=== PATIENT | male | born 1960 | race Caucasian/White ===

== ENCOUNTER 2018-05-13 19:06 | Inpatient (IN) | payer BC ==
[2018-05-13] MEDS ORDERED: DILTIAZEM HCL INJ 25 MG/5 ML VIAL IV ONE (19:36)
[2018-05-13] MEDS ORDERED: RINGERS SOLUTION,LACTATED 1,000 ML IV ONE (19:37)
[2018-05-13 19:42] LABS: ABSOLUTE EOSINOPHILS # (AUTO) 0.1 10^3/uL (0.0-0.6); ABSOLUTE LYMPHOCYTES (AUTO) 1.8 10^3/uL (0.5-4.7); ABSOLUTE MONOCYTES (AUTO) 1.1 10^3/uL (0.1-1.4); ABSOLUTE NEUT (AUTO) 9.5 10^3/uL (1.7-8.2); BASOPHILS % (AUTO) 0.3 % (0-2); EOSINOPHILS % (AUTO) 0.5 % (0-6); HEMATOCRIT 38.1 % (37.9-51.0); HEMOGLOBIN 13.1 g/dL (13.5-17.0); LYMPHOCYTES % (AUTO) 14.1 % (13-45); MEAN CORPUSCULAR HGB CONC 34.3 g/dL (32.0-36.0); MEAN CORPUSCULAR VOLUME 88 fl (80-97); MONOCYTES % (AUTO) 8.9 % (3-13); PLATELET COUNT 185 10^3/uL (150-450); RED BLOOD COUNT 4.35 10^6/uL (4.35-5.55); RED CELL DISTRIBUTION WIDTH 13.5 % (11.5-14.0); SEGMENTED NEUTROPHILS % (AUTO) 76.2 % (42-78); TOTAL CELLS COUNTED % (AUTO) 100 %; WHITE BLOOD COUNT 12.5 10^3/uL (4.0-10.5)
[2018-05-13 19:50] LABS: ANION GAP 6 (5-19); BLOOD UREA NITROGEN 14 mg/dL (7-20); CALCIUM 8.8 mg/dL (8.4-10.2); CARBON DIOXIDE 31 mmol/L (22-30); CHLORIDE 102 mmol/L (98-107); GLUCOSE 123 mg/dL (75-110); POTASSIUM 3.7 mmol/L (3.6-5.0); SODIUM 138.5 mmol/L (137-145)
--- NOTE | 2018-05-13 19:53 | ER Document Report ---
ED General - General Stated Complaint: WEAKNESS Time Seen by Provider: 05/13/18 19:30 Notes: Patient is a 57-year-old male with a past medical history of morbid obesity, hypertension, presents with 2-3 days of generalized weakness, palpitations and shortness of breath. Patient states symptoms started gradually and have been progressing since that time. 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 He has not seen his primary care physician regarding today's concerns. Nothing is been noted to improve or worsen his symptoms. He denies nausea, vomiting, arm or jaw pain. TRAVEL OUTSIDE OF THE [place] IN LAST 30 DAYS: No - Related Data Allergies/Adverse Reactions: No Known Allergies Allergy (Unverified 11/12/11 13:14) Past Medical History - General Information source: Patient - Social History Smoking Status: Never Smoker Frequency of alcohol use: None Drug Abuse: None Lives with: Spouse/Significant other Family History: Reviewed & Not Pertinent - Past Medical History Cardiac Medical History: Reports: Hx Hypercholesterolemia, Hx Hypertension Pulmonary Medical History: Denies: Hx Tuberculosis Neurological Medical History: Denies: Hx Seizures Past Surgical History: Denies: Hx Pacemaker - Immunizations Hx Diphtheria, Pertussis, Tetanus Vaccination: No Review of Systems - Review of Systems Notes: Constitutional: Negative for fever. HENT: Negative for sore throat. Eyes: Negative for visual changes. Cardiovascular: Positive for chest discomfort, palpitations Respiratory: Positive for shortness of breath. Gastrointestinal: Negative for abdominal pain, vomiting or diarrhea. Genitourinary: Negative for dysuria. Musculoskeletal: Negative for back pain. Skin: Negative for rash. Neurological: Negative for headaches, weakness or numbness. 10 point ROS negative except as marked above and in HPI. Physical Exam - Vital signs Vitals: Resp Pulse Ox 25 H 90 L 05/13/18 19:21 05/13/18 19:21 Interpretation: Tachycardic, Hypoxic, Tachypneic Notes: PHYSICAL EXAMINATION: GENERAL: Appears mildly unwell but in no acute distress HEAD: Atraumatic, normocephalic. EYES: Pupils equal round and reactive to light, extraocular movements intact, sclera anicteric, conjunctiva are normal. ENT: nares patent, oropharynx clear without exudates. Moderately dry mucous membranes. NECK: Normal range of motion, supple without lymphadenopathy LUNGS: Breath sounds clear to auscultation bilaterally and equal. No wheezes rales or rhonchi. HEART: Irregular regular tachycardia without murmurs ABDOMEN: Soft, nontender, normoactive bowel sounds. No guarding, no rebound. No masses appreciated. EXTREMITIES: Normal range of motion, no pitting or edema. No cyanosis. NEUROLOGICAL: No focal neurological deficits. Moves all extremities spontaneously and on command. PSYCH: Normal mood, normal affect. SKIN: Warm, Dry, normal turgor, no rashes or lesions noted. Course - Re-evaluation Re-evalutation: 05/13/18 19:51 Patient presents in A. fib with rapid ventricular response with associated borderline hypoxemia. Apparently was 90% on room air for EMS. Does not have a history of hypoxemia or A. fib at baseline. Patient's initial rates are ranging anywhere from the upper 130s to mid 160s. No hypotension. Patient does appear moderately short of breath, mildly tachypneic on initial assessment. Trace edema in the bilateral lower extremity's. Patient will receive a diltiazem bolus of 15 mg followed by infusion. He has a ready received 1 L normal saline bolus without any improvement of his tachycardia. Will also undergo standard la boratory assessment as well as chest x-ray. Certainly there would be concern for the possibility of development of failure as it sound like patient has had symptoms for several days and has not sought care. Patient is in guarded condition, will require frequent and regular reassessments. 05/13/18 21:04 Patient has received his diltiazem bolus, remains quite tachycardic. Infusion has been initiated. Labs are notable for mild BNP elevation likely secondary to uncontrolled A. fib for an extended period time. Chest x-ray without evidence of pulmonary edema. Continue to reassess. 05/13/18 22:05 Patient's heart rate is gradually improving, currently into the 130s. Remains oxygen dependent at this point. Will continue to up titrate diltiazem. Will discuss with the hospitalist. 05/13/18 22:12 Dr. Warren has accepted the patient for admission. - Vital Signs Vital signs: Temp Pulse Resp BP Pulse Ox 97.9 F 115 H 22 H 115/60 90 L 05/14/18 00:29 05/14/18 02:00 05/14/18 00:29 05/14/18 02:00 05/14/18 00:29 - Laboratory Result Diagrams: 05/13/18 19:05 05/13/18 19:05 Laboratory results interpreted by me: 05/13/18 05/13/18 05/13/18 19:05 19:05 19:05 WBC 12.5 H Hgb 13.1 L Absolute Neutrophils 9.5 H Carbon Dioxide 31 H Glucose 123 H NT-Pro-B Natriuret Pep 1960 H - Diagnostic Test Radiology reviewed: Image reviewed, Reports reviewed Radiology results interpreted by me: 05/13/18 22:13 Chest x-ray: No acute infiltrate or pneumothorax - EKG Interpretation by Me Additional EKG results interpreted by me: 05/13/18 19:53 Atrial fibrillation with rapid ventricular response. Rate 147. No ST elevations or depressions. QTC is 463. Critical Care Note - Critical Care Note Total time excluding time spent on procedures (mins): 37 Comments: Critical care time spent obtaining history from patient or surrogate, discuss ions with consultants, development of treatment plan with patient or surrogate, evaluation of patient's response to treatment, examination of patient, ordering and performing treatments and interventions, ordering and review of laboratory studies, re-evaluation of patient's condition, ordering and review of radiographic studies and review of old charts Discharge - Discharge Clinical Impression: Atrial fibrillation with rapid ventricular response, Hypoxia Condition: Fair Disposition: ADMITTED INPATIENT Admitting Provider: Hospitalist Unit Admitted: [facility]
[2018-05-13 20:02] LABS: TROPONIN I 0.016 ng/mL
--- NOTE | 2018-05-13 20:25 | RADIOLOGY REPORT (SQ) ---
EXAM DESCRIPTION: XR CHEST 1 VIEW COMPLETED DATE/TME: 05/13/2018 19:36 CLINICAL HISTORY: 57 years, Male, sob COMPARISON: None. NUMBER OF VIEWS: One TECHNIQUE: AP view of the chest LIMITATIONS: None. FINDINGS: The lungs are clear. Lung volumes are decreased. No pleural abnormalities. The cardiac silhouette and pulmonary vessels are within normal limits. IMPRESSION: No acute cardiopulmonary disease. copyright 2010 [employer]- All Rights Reserved
[2018-05-13] MEDS: DILTIAZEM HCL/D5W 125 MG/125 ML RTUINJ IV PRN (21:03)
[2018-05-13] MEDS ORDERED: MAG HYDROX/AL HYDROX/SIMETH SUSP 30 ML UDCUP PO PRN (22:13)
[2018-05-13] MEDS ORDERED: NORMAL SALINE 1000 ML 1,000 ML IV ONE (22:16)
[2018-05-13 22:29] LABS: INTERNATIONAL RATION (INR) 0.94
[2018-05-14] MEDS ORDERED: TRAZODONE HCL 50 MG TABLET PO ONE (03:00)
[2018-05-14] MEDS: DILTIAZEM HCL/D5W 125 MG/125 ML RTUINJ IV PRN ×3 (05:12→19:56)
--- NOTE | 2018-05-14 05:24 | PDOC H&P ---
History of Present Illness Admission Date/PCP: 05/13/18 22:22 Patient complains of: Generalized weakness History of Present Illness: SYDNEY STUART is a 57 year old male with a past medical history of hypertension, dyslipidemia and morbid obesity. 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 fib with RVR. Vagal maneuvers were attempted but did not relieve he is seen in the emergency room denying chest pain palpitations nausea vomiting diaphoresis but has A. fib with RVR in the 130s-150s. He started on IV Cardizem with improvement of generalized weakness. Patient denies heat or cold intolerance, previous episode, excessive caffeine, weight loss supplementation, alcohol or [id number] medications. He does admit to excessive daytime sleepiness. Past Medical History Cardiac Medical History: Reports: Hyperlipidema, Hypertension Pulmonary Medical History: Denies: Tuberculosis Neurological Medical History: Denies: Seizures Psychiatric Medical History: Denies: Depression Past Surgical History Past Surgical History: Denies: Pacemaker Social History Information Source: Patient Lives with: Spouse/Significant other Smoking Status: Never Smoker Frequency of Alcohol Use: None Hx Recreational Drug Use: No Drugs: None Hx Prescription Drug Abuse: No - Advance Directive Resuscitation Status: Full Code Family History Family History: CVA, Hypertension Parental Family History Reviewed: Yes Children Family History Reviewed: Yes Sibling(s) Family History Reviewed.: Yes Medication/Allergy Home Medications: Amlodipine Besylate/Benazepril [Lotrel 10-20 Mg Capsule] 1 each PO DAILY 11/12/11 Aspirin [Aspirin 81 mg Chewable Tablet] 81 mg PO DAILY 11/12/11 Rosuvastatin Calcium [Crestor 20 mg Tablet] 20 mg PO DAILY 11/12/11 Allergies/Adverse Reactions: No Known Allergies Allergy (Unverified 11/12/11 13:14) Review of Systems Constitutional: PRESENT: as per HPI, fatigue. ABSENT: chills, fever(s), headache(s), weight gain, weight loss Eyes: ABSENT: visual disturbances Ears: ABSENT: hearing changes Cardiovascular: ABSENT: chest pain, dyspnea on exertion, edema, orthropnea, palpitations Respiratory: ABSENT: cough, hemoptysis Gastrointestinal: ABSENT: abdominal pain, constipation, diarrhea, hematemesis, hematochezia, nausea, vomiting Genitourinary: ABSENT: dysuria, hematuria Musculoskeletal: ABSENT: joint swelling Integumentary: ABSENT: rash, wounds Neurological: ABSENT: abnormal gait, abnormal speech, confusion, dizziness, focal weakness, syncope Psychiatric: ABSENT: anxiety, depression, homidical ideation, suicidal ideation Endocrine: ABSENT: cold intolerance, heat intolerance, polydipsia, polyuria Hematologic/Lymphatic: ABSENT: easy bleeding, easy bruising Physical Exam Vital Signs: Temp Pulse Resp BP Pulse Ox 97.6 F 120 H 22 H 148/88 H 91 L 05/14/18 02:59 05/14/18 02:59 05/14/18 02:59 05/14/18 02:59 05/14/18 02:59 Intake & Output 05/12/18 05/13/18 05/14/18 11:59 11:59 11:59 Intake Total 371 Balance 371 Weight 148.2 kg General appearance: PRESENT: cooperative, mild distress, morbidly obese Head exam: PRESENT: atraumatic, normocephalic Eye exam: PRESENT: conjunctiva pink, EOMI, PERRLA. ABSENT: scleral icterus Ear exam: PRESENT: normal external ear exam Mouth exam: PRESENT: moist, tongue midline Neck exam: PRESENT: other - Markedly enlarged neck circumference. ABSENT: carotid bruit, JVD, lymphadenopathy, thyromegaly Respiratory exam: PRESENT: accessory muscle use, clear to auscultation rinku, symmetrical, tachypnea Cardiovascular exam: PRESENT: irregular rhythm, +S1, +S2, tachycardia Pulses: PRESENT: normal dorsalis pedis pul Vascular exam: PRESENT: normal capillary refill GI/Abdominal exam: PRESENT: normal bowel sounds, soft. ABSENT: distended, guarding, mass, organolmegaly, rebound, tenderness Rectal exam: PRESENT: deferred Extremities exam: PRESENT: full ROM, +1 edema. ABSENT: calf tenderness, clubbing Neurological exam: PRESENT: alert, awake, oriented to person, oriented to place, oriented to time, oriented to situation, CN II-XII grossly intact. ABSENT: mo tor sensory deficit Psychiatric exam: PRESENT: appropriate affect, normal mood. ABSENT: homicidal ideation, suicidal ideation Skin exam: PRESENT: abrasion Results Laboratory Results: 05/13/18 19:05 05/13/18 19:05 05/13/18 05/13/18 19:05 19:05 WBC 12.5 H RBC 4.35 Hgb 13.1 L Hct 38.1 MCV 88 MCH 30.0 MCHC 34.3 RDW 13.5 Plt Count 185 Seg Neutrophils % 76.2 Lymphocytes % 14.1 Monocytes % 8.9 Eosinophils % 0.5 Basophils % 0.3 Absolute Neutrophils 9.5 H Absolute Lymphocytes 1.8 Absolute Monocytes 1.1 Absolute Eosinophils 0.1 Absolute Basophils 0.0 Sodium 138.5 Potassium 3.7 Chloride 102 Carbon Dioxide 31 H Anion Gap 6 BUN 14 Creatinine 0.90 Est GFR ( Amer) > 60 Est GFR (Non-Af Amer) > 60 Glucose 123 H Calcium 8.8 05/13/18 05/13/18 19:05 22:30 Troponin I 0.016 0.015 NT-Pro-B Natriuret Pep 1960 H Impressions: Chest X-Ray 05/13/18 19:36 IMPRESSION: No acute cardiopulmonary disease. copyright 2011 [employer]- All Rights Reserved Assessment & Plan - Diagnosis (1) Atrial fibrillation with rapid ventricular response Is this a current diagnosis for this admission?: Yes Plan: IMCU admission, Lovenox, IV Cardizem with transition to p.o., follow-up 2D echo, cardiac enzymes, TSH. (2) Obstructive sleep apnea Is this a current diagnosis for this admission?: Yes Plan: Given neck circumference greater than 18, daytime sleepiness, morbid obesity and new A. fib strongly suggest obstructive sleep apnea, follow-up 2D echo and sleep study BiPAP initiated - Time Time Spent: 50 to 70 Minutes - Inpatient Certification Medical Necessity: Need Close Monitoring Due to Risk of Patient Decompensation
[2018-05-14 06:16] LABS: HEMATOCRIT 37.4 % (37.9-51.0); MEAN CORPUSCULAR HEMOGLOBIN 30.2 pg (27.0-33.4); MEAN CORPUSCULAR HGB CONC 34.7 g/dL (32.0-36.0); MEAN CORPUSCULAR VOLUME 87 fl (80-97); PLATELET COUNT 176 10^3/uL (150-450); RED CELL DISTRIBUTION WIDTH 13.1 % (11.5-14.0); WHITE BLOOD COUNT 11.8 10^3/uL (4.0-10.5)
[2018-05-14 06:38] LABS: CHOLESTEROL 99.79 mg/dL (0-200); CREATINE KINASE 73 U/L (55-170); TRIGLYCERIDES 63 mg/dL (<150)
[2018-05-14 06:48] LABS: DIRECT LDL 58 mg/dL (<100)
[2018-05-14 06:52] LABS: CREATINE KINASE MB 0.95 ng/mL (<4.55); TROPONIN I 0.016 ng/mL
[2018-05-14] MEDS ORDERED: ENOXAPARIN SODIUM INJ 150 MG/1 ML DISP.SYRIN SUBCUT SCH (10:00)
[2018-05-14] MEDS ORDERED: DIGOXIN INJ 0.5 MG/2 ML AMPULE IV ONE ×2 (10:45→23:25)
[2018-05-14] MEDS: DOCUSATE SODIUM 100 MG CAPSULE PO SCH ×2 (10:57→18:44)
[2018-05-14] MEDS: LORAZEPAM 0.5 MG TABLET PO PRN (10:57)
[2018-05-14] MEDS ORDERED: METOPROLOL TARTRATE PF/INJ 5 MG/5 ML SDV IV ONE (13:30)
[2018-05-14] MEDS ORDERED: METOPROLOL TARTRATE 25 MG TABLET PO ONE ×2 (14:00→15:45)
--- NOTE | 2018-05-14 15:41 | PDOC PROGRESS REPORT ---
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 He was seen on morning rounds with his present. He was found on supplemen steve oxygen at 2 L/min. He reports continued rhythm awareness; currently in A. fib with a heart rate in the 130s. He denies headaches, dizziness, lightheadedness, chest pain, dyspnea, orthopnea, and cough. He was recently treated for pneumonia 3 weeks ago and states that he occasionally has a lingering cough, however, does not feel that his pneumonia is returning. He does admit to anxiety related to his hospital admission; does not have an underlying depression or anxiety disorder. He is agreeable to trial of a small dose of Ativan today. He has no specific questions or concerns at this time. No concerns per nursing. Reason For Visit: AFIB MORBID OBESITY HTN Physical Exam Vital Signs: Temp Pulse Resp BP Pulse Ox 97.6 F 100 16 103/70 93 05/14/18 02:59 05/14/18 14:00 05/14/18 03:50 05/14/18 14:00 05/14/18 03:50 Intake & Output 05/13/18 05/14/18 05/15/18 06:59 06:59 06:59 Intake Total 371 1618 Output Total 725 125 Balance -354 1493 Weight 141 kg 142 kg General appearance: PRESENT: no acute distress, cooperative, morbidly obese, well-developed, well-nourished Head exam: PRESENT: atraumatic, normocephalic Eye exam: PRESENT: conjunctiva pink, EOMI, PERRLA. ABSENT: scleral icterus Ear exam: PRESENT: normal external ear exam Mouth exam: PRESENT: moist, tongue midline Neck exam: ABSENT: carotid bruit, JVD, lymphadenopathy, thyromegaly Respiratory exam: PRESENT: clear to auscultation rinku, decreased breath sounds - Throughout; secondary to body habitus, symmetrical, unlabored, other. ABSENT: rales, rhonchi, wheezes Cardiovascular exam: PRESENT: irregular rhythm - Supplemental oxygen 2 L/min, +S1, +S2, tachycardia. ABSENT: diastolic murmur, rubs, systolic murmur Pulses: PRESENT: normal dorsalis pedis pul Vascular exam: PRESENT: normal capillary refill GI/Abdominal exam: PRESENT: normal bowel sounds, soft. ABSENT: distended, guarding, mass, organolmegaly, rebound, tenderness Rectal exam: PRESENT: deferred Extremities exam: PRESENT: full ROM. ABSENT: calf tenderness, clubbing, pedal edema Neurological exam: PRESENT: alert, awake, oriented to person, oriented to place, oriented to time, oriented to situation, CN II-XII grossly intact. ABSENT: motor sensory deficit Psychiatric exam: PRESENT: appropriate affect, normal mood. ABSENT: homicidal ideation, suicidal ideation Skin exam: PRESENT: dry, intact, warm. ABSENT: cyanosis, rash Results Laboratory Results: 05/14/18 05:50 05/13/18 19:05 05/13/18 05/13/18 05/14/18 19:05 19:05 05:50 WBC 12.5 H 11.8 H RBC 4.35 4.30 L Hgb 13.1 L 13.0 L Hct 38.1 37.4 L MCV 88 87 MCH 30.0 30.2 MCHC 34.3 34.7 RDW 13.5 13.1 Plt Count 185 176 Seg Neutrophils % 76.2 Lymphocytes % 14.1 Monocytes % 8.9 Eosinophils % 0.5 Basophils % 0.3 Absolute Neutrophils 9.5 H Absolute Lymphocytes 1.8 Absolute Monocytes 1.1 Absolute Eosinophils 0.1 Absolute Basophils 0.0 Sodium 138.5 Potassium 3.7 Chloride 102 Carbon Dioxide 31 H Anion Gap 6 BUN 14 Creatinine 0.90 Est GFR ( Amer) > 60 Est GFR (Non-Af Amer) > 60 Glucose 123 H Calcium 8.8 Triglycerides Cholesterol LDL Cholesterol Direct VLDL Cholesterol HDL Cholesterol TSH 05/14/18 05/14/18 05:50 05:50 WBC RBC Hgb Hct MCV MCH MCHC RDW Plt Count Seg Neutrophils % Lymphocytes % Monocytes % Eosinophils % Basophils % Absolute Neutrophils Absolute Lymphocytes Absolute Monocytes Absolute Eosinophils Absolute Basophils Sodium Potassium Chloride Carbon Dioxide Anion Gap BUN Creatinine Est GFR ( Amer) Est GFR (Non-Af Amer) Glucose Calcium Triglycerides 63 Cholesterol 99.79 LDL Cholesterol Direct 58 VLDL Cholesterol 13.0 HDL Cholesterol 39 L TSH 0.97 05/13/18 05/13/18 05/14/18 19:05 22:30 05:50 Creatine Kinase CK-MB (CK-2) 0.95 Troponin I 0.016 0.015 0.016 NT-Pro-B Natriuret Pep 1960 H 05/14/18 05/14/18 05:50 12:05 Creatine Kinase 73 CK-MB (CK-2) Troponin I 0.012 NT-Pro-B Natriuret Pep Impressions: Chest X-Ray 05/13/18 19:36 IMPRESSION: No acute cardiopulmonary disease. copyright 2010 [email or web address]- All Rights Reserved Assessment & Plan - Diagnosis (1) Atrial fibrillation with rapid ventricular response Is this a current diagnosis for this admission?: Yes Plan: Chest x-ray is negative for acute cardiopulmonary disease. EKG demonstrated A. fib with RVR (heart rate 147) without ST segment changes. TSH is benign. Echocardiogram is pending. The patient is admitted to [facility] on continuous cardiac telemetry. He has been placed on a diltiazem drip; currently maxed out at 15 mg/h. Cardiology ordered IV digoxin x1 today followed by IV Lopressor; HR now in the mid to high 90s. Continue full dose Lovenox. Cardiology has been consulted; appreciate Dr. Burrows's assistance. (2) Elevated brain natriuretic peptide (BNP) level Is this a current diagnosis for this admission?: Yes Plan: proBNP is elevated 1967; no previous levels to compare to. Troponins negative x4 Chest x-ray is benign. Echocardiogram is pending. Cardiology is consulted. Medication management as above. (3) Leukocytosis Is this a current diagnosis for this admission?: Yes Plan: Stress reaction vs viral prodrome vs resolving leukocytosis following outpatient treatment for pneumonia. Patient is afebrile and denies focal or systemic symptoms consistent with infection. No indications for antibiotic therapy at this time. We will continue to monitor. (4) Obstructive sleep apnea Is this a current diagnosis for this admission?: Yes Plan: CPAP nightly. Supplemental oxygen as needed to maintain saturations >90%. (5) Morbid obesity with BMI of 45.0-49.9, adult Is this a current diagnosis for this admission?: Yes Plan: Dietary discretion is advised. Is placed on a cardiac diet. We will ask the registered dietitian to meet with the patient. - Time Time Spent with patient: 15-24 minutes Medications reviewed and adjusted accordingly: Yes Anticipated discharge: Home
[2018-05-14] MEDS ORDERED: APIXABAN 5 MG TABLET PO SCH (18:00)
[2018-05-14] MEDS ORDERED: DILTIAZEM HCL/D5W 125 MG/125 ML RTUINJ IV ONE (18:46)
[2018-05-14] MEDS ORDERED: TRAZODONE HCL 50 MG TABLET PO PRN (21:23)
[2018-05-14] MEDS: ATORVASTATIN CALCIUM 80 MG TABLET PO SCH (21:30)
[2018-05-14] MEDS: METOPROLOL SUCCINATE 25 MG TAB.SR.24H PO SCH (21:30)
[2018-05-14] MEDS ORDERED: METOPROLOL SUCCINATE 25 MG TAB.SR.24H PO SCH (22:00)
[2018-05-14] MEDS ORDERED: METOPROLOL TARTRATE 25 MG TABLET PO SCH (22:00)
[2018-05-14] MEDS ORDERED: METOPROLOL TARTRATE 50 MG TABLET PO ONE (22:17)
--- NOTE | 2018-05-14 22:28 | PDOC CONSULTATION ---
Consultation-Blank Consultation: CARDIOLOGY CONSULTATION by Dr. Nevin Burrows on 05/14/18. Patient seen at 430 p.m. on 05/14/18. REASON FOR CONSULTATION: New onset atrial fibrillation with rapid ventricular response. HISTORY of PRESENT ILLNESS: 57-year-old male with known history of morbid obesity, hypertension, and hyperlipidemia who states that since the past 3-4 days has not been feeling well. He states that he has generalized fatigue and tires very easily, and also finds that he has shortness of breath with mini mal exertion. He also has generalized fatigue and malaise. He has no palpitations. In the emergency room he was found to be in atrial fibrillation with rapid ventricular response. He has not had any such history in the past. He also states that although there is no definite description of chest symptoms he is states that he does not "feel right in the chest". He denies any cough or sputum production. There is no fever or chills. There is no symptoms of UTI. The patient does have some orthopnea but no PND or leg swelling there is no clear-cut anginal symptoms. There is no dizziness or syncope or near syncope. There is no TIA CVA symptoms. In spite of the patient being a rapid rapid atrial fibrillation, HEENT the patient does not feel any palpitations. Hence approximately the onset of his atrial fibrillation is at least 4 days old. PAST MEDICAL HISTORY: The patient has a history of hypertension, which is well controlled with Lotrel. He also has a history of hyperlipidemia. There is no history of diabetes mellitus or thyroid disease. There is no prior history of atrial fibrillation. There is no history of coronary artery disease, VA or anginal symptoms. There is no prior history of congestive heart failure. There is no history of TIA or CVA. There is no history of anxiety or depression. About more than a year ago he was advised to have a sleep study, but due to the cost did not have it done. He has symptoms suggestive of sleep apnea, and the states that the patient does snore, and does stop breathing in his sleep. His. PAST SURGICAL HISTORY: The patient has had surgery for incarcerated umbilical hernia in the past. FAMILY HISTORY: Is negative for coronary artery disease. Positive for hypertension. ALLERGIES: No known allergies. SOCIAL HISTORY: The patient is a non-smoker. There is no history of EtOH abuse. He states there is no excessive caffeine intake. 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 DISPOSITION: The patient is a full code. His is a surrogate healthcare decision maker. REVIEW SYSTEMS:CONSTITUTIONAL: Denies fever chills or rigors, complains of generalized fatigue and weakness. HEAD: No history of headaches or head injury. EYES: No history of amblyopia or diplopia no history of amaurosis fugax. EARS: No history of hearing loss no history of tinnitus, no recurrent ear infections. NOSE: No history of hayfever. No nosebleeds. MOUTH: No history of altered taste sensation, no history of ulcers in the mouth no bleeding from gums. THROAT: No history of odynophagia dysphagia, no recurrent sore throats. SKIN: No history of pruritus, no history of yellowish discoloration of the skin, no skin cancer or psoriasis. NECK: No history of neck pain or neck swelling. No goiter. LUNGS: No history of asthma or COPD. The patient has no history of sleep apnea. No history of wheezing or cough. No symptoms of pneumonia or upper or lower respiratory tract infection. No history of pulmonary embolism. No history of pleuritic chest pain no hemoptysis. He has symptoms suggestive of sleep apnea, and although he was recommended to have a sleep study in the past he could not afford it financially. As per the patient's symptoms and physical examination he definitely will test positive for sleep apnea on a sleep study. CARDIAC:: No history of coronary artery disease, prior VA, or heart failure.. No history of congenital heart disease no history of congestive heart failure. This seems to be the first episode of atrial fibrillation, although the patient has no palpitations with it. No history of cardiac arrhythmia. No history of PND orthopnea palpitations dizziness or syncope. No history of hypertension. METABOLIC: He has a history of obesity present and is on medication for history of hyperlipidemia. MUSCULOSKELETAL: No history of arthritis present, and no history of collagen vascular disease. RENAL: No history of chronic kidney disease. No symptoms of UTI. No history of hematuria pyuria or dysuria. Past history of renal stones very remotely, with no recurrence. ENDOCRINE: No history of diabetes mellitus. No history of thyroid disease. No history of polydipsia polyuria no history of heat or cold intolerance. GI: No history of GERD symptoms present. No history of GI bleed, and no history of abdominal pain and and or nausea, or vomiting. No fatty food intolerance. No history of GI bleed. No history of altered bowel movements. No history of cirrhosis or ascites. CAR SEAT UPHOLSTERER: No history of TIA or CVA. No history of headaches migraines or seizures. PSYCHIATRIC: No history of depression present, no history of anxiety. No history of suicidal or homicidal ideation. VASCULAR: No history of calf or buttock claudication.. No history of DVT. HEMATOLOGICAL no history of bleeding diathesis or clotting disorders. Full review of symptoms the conclusion is that the patient has no contraindications for chronic anticoagulation therapy. PHYSICAL EXAMINATION: The patient is morbidly obese. Slightly anxious. But in no acute distress. He is well-groomed. Selected Entries 05/14/18 05/14/18 16:00 16:17 Temperature 98.7 F Temperature Oral Source Pulse Rate 98 Heart Rate ( 113 Monitors) Respiratory 20 Rate BP Location Right Arm O2 Sat by Pulse 93 Oximetry Oxygen Delivery Room Air Method HEAD: Is atraumatic normocephalic. EYES: Pupils are equal round regular reactive to light accommodation. Extraocular movements are normal. There is no palatal pallor. There is no scleral icterus. EYES: Pupils equal round regular reactive to light accommodation. Extraocular movements are normal. There is no conjunctival pallor. There is no scleral icterus. EARS: Tympanic membranes are intact. External auditory canals are clear. NOSE: There is no deviated nasal septum. There is no inflammation of the nasal mucous membrane. There is no nasal polyps on exam. MOUTH: There is no ulcers in the mouth or any bleeding from the mouth or gums. Mucous membranes of the mouth are moist tongue is moist. THROAT: There is no redness of the oropharynx. There is no exudates. His oropharynx is Mallampati class 3 SKIN: There is no skin rashes or petechiae. There is no skin lesions or ecchymosis. NECK: Is supple. There is no JVD. Carotids are equal. There is no bruits. There is no lymphadenopathy. There is no goiter. There is no accessory muscles of respiration use. Trachea central. LUNGS: Clear to auscultation without any rhonchi rales or wheezing. In view of the patient's obesity there is diminished air entry bilaterally. But the expiration is not prolonged. There is no chest wall tenderness. HEART: S1-S2 is heard S1 is of variable intensity. There is no S3 gallop. There is no S4 gallop. There is systolic murmur left sternal border and the apex there is no rub. ABDOMEN: Is obese. Nontender. There is no hepatosplenomegaly. Bowel sounds are well heard. EXTREMITIES: Femorals are deep femorals are diminished there is no femoral bruits. Leg pulses are well felt. There is no pedal edema. There is no DVT or cellulitis. There is no calf tenderness. There is no cyanosis or clubbing. Capillary refill is normal CAR SEAT UPHOLSTERER: The patient is conscious awake alert oriented x3 with no focal deficit. PSYCHIATRIC: The patient judgment insight are intact his affect is normal. 05/13/18 05/13/18 05/13/18 19:05 19:05 22:30 WBC RBC Hgb Hct MCV MCH MCHC RDW Plt Count Sodium 138.5 Potassium 3.7 Chloride 102 Carbon Dioxide 31 H Anion Gap 6 BUN 14 Creatinine 0.90 Est GFR (Non-Af Amer) > 60 Glucose 123 H Calcium 8.8 Creatine Kinase CK-MB (CK-2) Troponin I 0.016 0.015 NT-Pro-B Natriuret Pep 1960 H Triglycerides Cholesterol LDL Cholesterol Direct VLDL Cholesterol HDL Cholesterol TSH 05/14/18 05/14/18 05/14/18 05:50 05:50 05:50 WBC 11.8 H RBC 4.30 L Hgb 13.0 L Hct 37.4 L MCV 87 MCH 30.2 MCHC 34.7 RDW 13.1 Plt Count 176 Sodium Potassium Chloride Carbon Dioxide Anion Gap BUN Creatinine Est GFR (Non-Af Amer) Glucose Calcium Creatine Kinase 73 CK-MB (CK-2) 0.95 Troponin I 0.016 NT-Pro-B Natriuret Pep Triglycerides 63 Cholesterol 99.79 LDL Cholesterol Direct 58 VLDL Cholesterol 13.0 HDL Cholesterol 39 L TSH 05/14/18 05/14/18 05:50 12:05 WBC RBC Hgb Hct MCV MCH MCHC RDW Plt Count Sodium Potassium Chloride Carbon Dioxide Anion Gap BUN Creatinine Est GFR (Non-Af Amer) Glucose Calcium Creatine Kinase CK-MB (CK-2) Troponin I 0.012 NT-Pro-B Natriuret Pep Triglycerides Cholesterol LDL Cholesterol Direct VLDL Cholesterol HDL Cholesterol TSH 0.97 Home Meds Table Amlodipine Besylate/Benazepril [Lotrel 10-20 mg Capsule] 1 each PO DAILY 11/12/11 Aspirin [Aspirin 81 mg Chewable Tablet] 81 mg PO DAILY 11/12/11 Rosuvastatin Calcium [Crestor 20 mg Tablet] 20 mg PO DAILY 11/12/11 Multivitamin [Multiple Vitamins] 1 each PO DAILY 05/14/18 05/13/18 19:36 Diltiazem HCl [Cardizem Inj 25 mg/5 ml Vial] 15 mg IV NOW ONE Diltiazem HCl/D5w [Cardizem RTU Inj 125 mg-D5w 125 ml Premix] 125 mg in 125 ml IV CONTINUOUS 05/13/18 19:37 Ringers Solution,Lactated [Lactated Ringers 1000 ml IV Soln] 1,000 ml IV NOW 05/13/18 22:13 Mag Hydrox/Al Hydrox/Simeth [Maalox Plus Susp 30 Udcup] 30 ml PO Q4HP PRN 05/13/18 22:16 Normal Saline 1000 ml [NaCl 0.9% 1000 ml IV Soln] 1,000 ml IV X 1 BAG 05/14/18 03:00 Trazodone HCl [Desyrel 50 mg Tablet] 50 mg PO NOW ONE 05/14/18 06:00 Normal Saline [Saline Flush 2.5 ml Monoject Prefil Syrin] 2.5 ml IV Q8 05/14/18 10:00 Docusate Sodium [Colace 100 mg Capsule] 100 mg PO BID 05/14/18 10:26 Lorazepam [Ativan 0.5 mg Tablet] 0.25 mg PO DAILYP PRN 05/14/18 10:45 Digoxin Inj [Lanoxin Inj 0.5 mg/2 ml Ampule] 0.25 mg IV NOW ONE 05/14/18 13:30 Metoprolol Tartrate [Lopressor Inj/Pf 5 mg/5 ml Sdv] 2.5 mg IV NOW ONE 05/14/18 15:45 Metoprolol Tartrate [Lopressor 25 mg Tablet] 25 mg PO NOW ONE 05/14/18 18:46 Diltiazem HCl/D5w [Cardizem RTU Inj 125 mg-D5w 125 ml Premix] 125 mg in 125 ml IV .STK-MED 05/14/18 21:23 Trazodone HCl [Desyrel 50 mg Tablet] 25 mg PO HSP PRN 05/14/18 22:00 Atorvastatin Calcium [Lipitor 80 mg Tablet] 80 mg PO QHS Metoprolol Succinate [Toprol Xl 25 mg Tab.sr] 50 mg PO Q12 05/14/18 22:17 Metoprolol Tartrate [Lopressor 50 mg Tablet] 50 mg PO NOW ONE Patient EKG shows atrial fibrillation with rapid ventricular response. His chest x-ray is negative for any acute process. IMPRESSION/RECOMMENDATION: 1. New onset atrial fibrillation with rapid ventricular response. Continue patient on IV Cardizem infusion at 15 mg/h. Would recommend digoxin 0.25 mg IV push as needed. Will discontinue the patient's amlodipine. Note that the patient is on Lovenox 150 mg subcutaneously every 12 hours. The patient's corrected Josh Vascor is 1. Hence patient will benefit from chronic anticoagulation therapy. The risks of bleeding and the benefits of stroke prophylaxis with Coumadin and other newer oral agents have been discussed with the patient and the patient's they have agreed to be on Eliquis. We will start the patient on Eliquis 5 mg p.o. twice daily, and stop the patient's Lovenox. If the patient does convert to sinus rhythm, then may give the patient a trial of sotalol to keep the patient in sinus rhythm.\\ 2. Hypertension: As per patient well-controlled, as mentioned earlier we will stop the patient's amlodipine, and restart only if is necessary. Later would start the patient on either sotalol or metoprolol. 3. History of hyperlipidemia. Lipid level showed dyslipidemia with a low HDL level, and acceptable triglycerides and HDL levels. Would recommend continue the patient on statin. 4. Symptoms, and physical exam suggestive of sleep apnea: Patient recommended to have a sleep study as an outpatient. We will try the patient empirically on BiPAP at night. 5. Morbid obesity: Later as an outpatient would recommend that the patient have weight reduction counseling, including diet and possibly consultation with the weight loss facility. Collision making is of high complexity. Discussed the case and medication changes with the attending physician on the case. Note 60 minutes spent on this patient more than 50% of time spent in direct patient care. All questions from the patient patient's have been answered. I have also discussed that with the patient that the plan is to continue the patient on chronic anticoagulation, and if the patient does not convert to sinus rhythm would bring the patient back in about 4-6 weeks and try chemical/electrical cardioversion in the hospital. This has been discussed in detail. Will follow with you. Thanking you for this consultation.
--- NOTE | 2018-05-14 23:53 | EKG REPORT ---
SEVERITY:- ABNORMAL ECG - ATRIAL FIBRILLATION, V-RATE 107-185 PROBABLE INFERIOR INFARCT, AGE INDETERMINATE : Confirmed by: Vishal Childers 14-May-2018 23:52:10
[2018-05-15] MEDS ORDERED: DIGOXIN INJ 0.5 MG/2 ML AMPULE IV ONE (02:30)
[2018-05-15] MEDS ORDERED: DILTIAZEM HCL/D5W 125 MG/125 ML RTUINJ IV ONE (04:31)
[2018-05-15] MEDS: DILTIAZEM HCL/D5W 125 MG/125 ML RTUINJ IV PRN ×4 (04:36→23:12)
[2018-05-15 06:31] LABS: HEMATOCRIT 40.1 % (37.9-51.0); HEMOGLOBIN 13.6 g/dL (13.5-17.0); MEAN CORPUSCULAR HEMOGLOBIN 29.8 pg (27.0-33.4); MEAN CORPUSCULAR HGB CONC 33.9 g/dL (32.0-36.0); MEAN CORPUSCULAR VOLUME 88 fl (80-97); PLATELET COUNT 180 10^3/uL (150-450); RED BLOOD COUNT 4.57 10^6/uL (4.35-5.55); RED CELL DISTRIBUTION WIDTH 13.5 % (11.5-14.0); WHITE BLOOD COUNT 12.5 10^3/uL (4.0-10.5)
[2018-05-15 06:57] LABS: ANION GAP 9 (5-19); BLOOD UREA NITROGEN 13 mg/dL (7-20); CARBON DIOXIDE 26 mmol/L (22-30); CHLORIDE 103 mmol/L (98-107); GLUCOSE 132 mg/dL (75-110); POTASSIUM 3.8 mmol/L (3.6-5.0); SODIUM 138.4 mmol/L (137-145)
[2018-05-15] MEDS: METOPROLOL SUCCINATE 25 MG TAB.SR.24H PO SCH ×2 (10:24→21:29)
[2018-05-15] MEDS: APIXABAN 5 MG TABLET PO SCH ×2 (10:24→17:30)
[2018-05-15] MEDS: DOCUSATE SODIUM 100 MG CAPSULE PO SCH ×2 (10:25→17:52)
[2018-05-15] MEDS ORDERED: METOPROLOL TARTRATE PF/INJ 5 MG/5 ML SDV IV ONE ×2 (12:00→13:15)
[2018-05-15] MEDS ORDERED: LEVALBUTEROL HCL NEB 1.25 MG/3 ML AMPUL NEB PRN (13:52)
[2018-05-15] MEDS ORDERED: BENZONATATE 100 MG CAPSULE PO PRN (13:52)
[2018-05-15] MEDS ORDERED: ZOLPIDEM TARTRATE 5 MG TABLET PO PRN (13:52)
[2018-05-15] MEDS: LORAZEPAM 0.5 MG TABLET PO PRN (15:16)
--- NOTE | 2018-05-15 15:42 | PDOC PROGRESS REPORT ---
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 He was seen on afternoon rounds with his and son present. He was found on supplemental oxygen at 2 L/min. He reports continued rhythm awareness; currently in A. fib with a heart rate 100-115s. He reports slight shortness of breath, intermittent wheezing, and productive cough. He denies headaches, dizziness, lightheadedness, chest pain, orthopnea, abdominal pain, nausea and vomiting. He has no new questions or concerns at this time. No concerns per nursing. Reason For Visit: AFIB MORBID OBESITY HTN Physical Exam Vital Signs: Temp Pulse Resp BP Pulse Ox 98.2 F 97 16 114/75 92 05/15/18 08:27 05/15/18 13:00 05/15/18 08:27 05/15/18 13:00 05/15/18 08:27 Intake & Output 05/14/18 05/15/18 05/16/18 06:59 06:59 06:59 Intake Total 371 2846 94 Output Total 725 1795 Balance -354 1051 94 Weight 141 kg 142.1 kg General appearance: PRESENT: no acute distress, cooperative, morbidly obese, well-developed, well-nourished Head exam: PRESENT: atraumatic, normocephalic Eye exam: PRESENT: conjunctiva pink, EOMI, PERRLA. ABSENT: scleral icterus Ear exam: PRESENT: normal external ear exam Mouth exam: PRESENT: moist, tongue midline Neck exam: ABSENT: carotid bruit, JVD, lymphadenopathy, thyromegaly Respiratory exam: PRESENT: decreased breath sounds, prolonged expiratory phas, rhonchi - Secondary to body habitus, symmetrical, unlabored, wheezes - Occasional slight end expiratory wheezing, other. ABSENT: rales Cardiovascular exam: PRESENT: irregular rhythm, +S1, +S2, tachycardia. ABSENT: diastolic murmur, rubs, systolic murmur Pulses: PRESENT: normal dorsalis pedis pul Vascular exam: PRESENT: normal capillary refill GI/Abdominal exam: PRESENT: normal bowel sounds, soft. ABSENT: distended, guarding, mass, organolmegaly, rebound, tenderness Rectal exam: PRESENT: deferred Extremities exam: PRESENT: full ROM. ABSENT: calf tenderness, clubbing, pedal edema Neurological exam: PRESENT: alert, awake, oriented to person, oriented to place, oriented to time, oriented to situation, CN II-XII grossly intact. ABSENT: motor sensory deficit Psychiatric exam: PRESENT: appropriate affect, normal mood. ABSENT: homicidal ideation, suicidal ideation Skin exam: PRESENT: dry, intact, warm. ABSENT: cyanosis, rash Results Laboratory Results: 05/15/18 05:49 05/15/18 05:49 05/15/18 05/15/18 05:49 05:49 WBC 12.5 H RBC 4.57 Hgb 13.6 Hct 40.1 MCV 88 MCH 29.8 MCHC 33.9 RDW 13.5 Plt Count 180 Sodium 138.4 Potassium 3.8 Chloride 103 Carbon Dioxide 26 Anion Gap 9 BUN 13 Creatinine 0.87 Est GFR ( Amer) > 60 Est GFR (Non-Af Amer) > 60 Glucose 132 H Calcium 9.0 05/13/18 05/13/18 05/14/18 19:05 22:30 05:50 Creatine Kinase CK-MB (CK-2) 0.95 Troponin I 0.016 0.015 0.016 NT-Pro-B Natriuret Pep 1960 H 05/14/18 05/14/18 05:50 12:05 Creatine Kinase 73 CK-MB (CK-2) Troponin I 0.012 NT-Pro-B Natriuret Pep Impressions: Chest X-Ray 05/13/18 19:36 IMPRESSION: No acute cardiopulmonary disease. copyright 2010 [employer]- All Rights Reserved Assessment & Plan - Diagnosis (1) Atrial fibrillation with rapid ventricular response Is this a current diagnosis for this admission?: Yes Plan: Chest x-ray is negative for acute cardiopulmonary disease. EKG demonstrated A. fib with RVR (heart rate 147) without ST segment changes. TSH is benign. Echocardiogram is pending. The patient is admitted to [facility] on continuous cardiac telemetry. He has been placed on a diltiazem drip; currently maxed out at 15 mg/h. Metoprolol XL 50 mg twice daily. Has been transitioned to Eliquis per cardiology. Cardiology has been consulted; appreciate Dr. Burrows's assistance. (2) Elevated brain natriuretic peptide (BNP) level Is this a current diagnosis for this admission?: Yes Plan: proBNP is elevated 1967; no previous levels to compare to. Troponins negative x4 Chest x-ray is benign. Echocardiogram is pending. Cardiology is consulted. Medication management as above. (3) Leukocytosis Is this a current diagnosis for this admission?: Yes Plan: Stress reaction vs viral prodrome vs resolving leukocytosis following outpatient treatment for pneumonia. Patient is afebrile and denies focal or systemic symptoms consistent with infection. No indications for antibiotic therapy at this time. We will continue to monitor. (4) Obstructive sleep apnea Is this a current diagnosis for this admission?: Yes Plan: CPAP nightly. Supplemental oxygen as needed to maintain saturations >90%. (5) Morbid obesity with BMI of 45.0-49.9, adult Is this a current diagnosis for this admission?: Yes Plan: Dietary discretion is advised. Is placed on a cardiac diet. We will ask the registered dietitian to meet with the patient. (6) Dyspnea Qualifiers: Dyspnea type: dyspnea on exertion Qualified Code(s): R06.09 - Other forms of dyspnea Is this a current diagnosis for this admission?: Yes Plan: Secondary to afib w/ RVR and URI; possibly bronchitis. Pt was treated as an outpatient for pneumonia 3 weeks ago. Slight rhonchi and wheezing noted today. Continue supplemental oxygen as needed. CPAP nightly. As needed nebulizer treatments. Tessalon Perles. Mucinex twice daily. Consider repeat CXR in the morning; will obtain repeat proBNP with a.m. lab work. - Time Time Spent with patient: 15-24 minutes Medications reviewed and adjusted accordingly: Yes Anticipated discharge: Home
[2018-05-15 16:03] LABS: APPEARANCE,URINE CLEAR; BILIRUBIN,URINE NEGATIVE (NEGATIVE); COLOR,URINE YELLOW; GLUCOSE, URINE 50 mg/dL (NEGATIVE); KETONES,URINE NEGATIVE (NEGATIVE); LEUKOCYTE ESTERASE,URINE NEGATIVE (NEGATIVE); NITRITE,URINE NEGATIVE (NEGATIVE); PROTEIN,URINE NEGATIVE (NEGATIVE); URINE SPECIFIC GRAVITY 1.017
--- NOTE | 2018-05-15 21:13 | XCELERA REPORT ---
[address] [address] Transthoracic Echocardiogram Report Name: SYDNEY STUART Age: 57 yrs Gender: Male : 1960 Patient Status: Inpatient Patient Location: [facility]^A Study Date: 05/14/2018 08:38 AM Height: 67 in Weight: 326 lb BSA: 2.5 m2 Reason For Study: new afib Ordering Physician: JONAS CUEVAS Performed By: Butch Orourke Interpretation Summary This study is uninterpretable due to poor imaging and poor doppler interogation.See report of repeat echo done on . This study is uninterpretable due to poor imaging and poor doppler interogation.See report of repeat echo done on . MMode/2D Measurements & Calculations RVDd: 3.4 cm LVIDd: 6.6 cm FS: 23.7 % Ao root diam: 3.1 cm IVSd: 0.67 cm LVIDs: 5.0 cm EDV(Teich): 220.9 ml LVPWd: 1.2 cm ESV(Teich): 118.8 ml Ao root area: 7.5 cm2 LA dimension: 5.0 cm EF(Teich): 46.2 % LVOT diam: 2.4 cm LVOT area: 4.6 cm2 Doppler Measurements & Calculations MV E max abby: MV P1/2t max abby: Ao V2 max: LV V1 max P.8 cm/sec 139.6 cm/sec 153.2 cm/sec 4.9 mmHg MV A max abby: MV P1/2t: 54.8 msec Ao max P.4 mmHgLV V1 max: 61.7 cm/sec MVA(P1/2t): 4.0 cm2 LIBRADO(V,D): 3.3 cm2 110.8 cm/sec MV E/A: 1.6 MV dec slope: 746.7 cm/sec2 MV dec time: 0.20 sec PA V2 max: TR max abby: MV P1/2t-pr_phl: 118.3 cm/sec 161.0 cm/sec 54.8 msec PA max PG: TR max P.4 mmHg 5.6 mmHg : JONAS CUEVAS > Markos, Nevin
[2018-05-15] MEDS: ATORVASTATIN CALCIUM 80 MG TABLET PO SCH (21:28)
[2018-05-15] MEDS: GUAIFENESIN 600 MG TABLET.SA PO SCH (21:29)
--- NOTE | 2018-05-15 22:35 | Progress Note ---
Provider Note Provider Note: CARDIOLOGY PROGRESS NOTE by Dr. Nevin Burrows on 05/15/2018 SUBJECTIVE: The patient continues to be in atrial fibrillation, with a heart rate being slightly better. But still atrial fibrillation ventricular response is not rate controlled. The patient denies any chest pain or discomfort. There is no shortness of breath. There is no PND orthopnea. There is no leg edema. There is no TIA CVA symptoms. There is no bleeding on Eliquis. The patient has no anginal symptoms. There is no ventricular arrhythmia seen on the monitor. PHYSICAL EXAMINATION: The patient is morbidly obese. In no acute distress although is slightly anxious. He is well-groomed. Selected Entries 05/15/18 12:05 Temperature 97.3 F Temperature Oral Source Pulse Rate 99 Respiratory 16 Rate Blood Pressure 147/92 H Blood Pressure 110 Mean BP Location Left Arm BP Position Sitting O2 Sat by Pulse 92 Oximetry Oxygen Delivery Room Air Method HEAD: Is atraumatic normocephalic. EYES: Pupils are equal round regular reactive to light accommodation. Extraocular movements are normal. There is no palatal pallor. There is no scleral icterus. EYES: Pupils equal round regular reactive to light accommodation. Extraocular movements are normal. There is no conjunctival pallor. There is no scleral icterus. EARS: Tympanic membranes are intact. External auditory canals are clear. NOSE: There is no deviated nasal septum. There is no inflammation of the nasal mucous membrane. There is no nasal polyps on exam. MOUTH: There is no ulcers in the mouth or any bleeding from the mouth or gums. Mucous membranes of the mouth are moist tongue is moist. THROAT: There is no redness of the oropharynx. There is no exudates. His oropharynx is Mallampati class 3 SKIN: There is no skin rashes or petechiae. There is no skin lesions or ecchymosis. NECK: Is supple. There is no JVD. Carotids are equal. There is no bruits. There is no lymphadenopathy. There is no goiter. There is no accessory muscles of respiration use. Trachea central. LUNGS: Clear to auscultation without any rhonchi rales or wheezing. In view of the patient's obesity there is diminished air entry bilaterally. But the expiration is not prolonged. There is no chest wall tenderness. HEART: S1-S2 is heard S1 is of variable intensity. There is no S3 gallop. There is no S4 gallop. There is systolic murmur left sternal border and the apex there is no rub. ABDOMEN: Is obese. Nontender. There is no hepatosplenomegaly. Bowel sounds are well heard. EXTREMITIES: Femorals are deep femorals are diminished there is no femoral bruits. Leg pulses are well felt. There is no pedal edema. There is no DVT or cellulitis. There is no calf tenderness. There is no cyanosis or clubbing. Capillary refill is normal AUDIT TECH: The patient is conscious awake alert oriented x3 with no focal deficit. PSYCHIATRIC: The patient judgment insight are intact his affect is normal. 05/13/18 05/14/18 05/14/18 19:05 05:50 05:50 WBC RBC Hgb Hct MCV MCH MCHC RDW Plt Count PT 13.0 INR 0.94 Sodium Potassium Chloride Carbon Dioxide Anion Gap BUN Creatinine Est GFR (Non-Af Amer) Glucose Hemoglobin A1c % Calcium Creatine Kinase 73 CK-MB (CK-2) 0.95 Troponin I 0.016 Triglycerides 63 Cholesterol 99.79 LDL Cholesterol Direct 58 VLDL Cholesterol 13.0 HDL Cholesterol 39 L TSH Stool Occult Blood 05/14/18 05/14/18 05/15/18 05:50 12:05 05:49 WBC 12.5 H RBC 4.57 Hgb 13.6 Hct 40.1 MCV 88 MCH 29.8 MCHC 33.9 RDW 13.5 Plt Count 180 PT INR Sodium Potassium Chloride Carbon Dioxide Anion Gap BUN Creatinine Est GFR (Non-Af Amer) Glucose Hemoglobin A1c % Calcium Creatine Kinase CK-MB (CK-2) Troponin I 0.012 Triglycerides Cholesterol LDL Cholesterol Direct VLDL Cholesterol HDL Cholesterol TSH 0.97 Stool Occult Blood Negative 05/15/18 05/15/18 05/15/18 05:49 05:49 14:03 WBC RBC Hgb Hct MCV MCH MCHC RDW Plt Count PT INR Sodium 138.4 Potassium 3.8 Chloride 103 Carbon Dioxide 26 Anion Gap 9 BUN 13 Creatinine 0.87 Est GFR (Non-Af Amer) > 60 Glucose 132 H Hemoglobin A1c % 5.7 Calcium 9.0 Creatine Kinase CK-MB (CK-2) Troponin I Triglycerides Cholesterol LDL Cholesterol Direct VLDL Cholesterol HDL Cholesterol TSH Stool Occult Blood NEGATIVE The patient's echocardiogram which was repeated today. In spite of that Markos very good study, but shows normal left ventricular wall motion and ejection fraction. There is mild pulmonary hypertension. IMPRESSION/RECOMMENDATION: 1. New onset atrial fibrillation with rapid ventricular response. Continue patient on IV Cardizem infusion at 15 mg/h. Would recommend digoxin 0.25 mg IV push as needed. Will discontinue the patient's amlodipine. The patient is on liquid Eliquis 5 mg p.o. twice daily. We will start the patient on metoprolol 50 mg p.o. every 12 hours and increase as tolerated, with at the same time depending on the blood pressure and the heart rate will decrease the patient's Cardizem drip, and finally discontinue the Cardizem drip. 2. Hypertension: As per patient well-controlled, as mentioned earlier we will stop the patient's amlodipine, and restart only if is necessary. Later would start the patient on either sotalol or metoprolol. 3. History of hyperlipidemia. Lipid level showed dyslipidemia with a low HDL level, and acceptable triglycerides and HDL levels. Would recommend continue the patient on statin. 4. Symptoms, and physical exam suggestive of sleep apnea: Patient recommended to have a sleep study as an outpatient. We will try the patient empirically on BiPAP at night. 5. Morbid obesity: Later as an outpatient would recommend that the patient have weight reduction counseling, including diet and possibly consultation with the weight loss facility. Medical decision making is of high complexity. Discussed the case and medication changes with the attending physician on the case. Note 40 minutes spent on this patient more than 50% of time spent in direct patient care. Echo findings have been discussed with the patient. I have also re-discussed that with the patient that the plan is to continue the patient on chronic anticoagulation, and if the patient does not convert to sinus rhythm, and then would bring the patient back in about 4-6 weeks and try chemical/electrical cardioversion in the hospital. This has been discussed in detail. Will follow with you
[2018-05-15] MEDS ORDERED: METOPROLOL SUCCINATE 25 MG TAB.SR.24H PO ONE (22:45)
[2018-05-16 06:17] LABS: HEMATOCRIT 39.5 % (37.9-51.0); HEMOGLOBIN 13.5 g/dL (13.5-17.0); MEAN CORPUSCULAR HEMOGLOBIN 29.8 pg (27.0-33.4); MEAN CORPUSCULAR HGB CONC 34.3 g/dL (32.0-36.0); MEAN CORPUSCULAR VOLUME 87 fl (80-97); PLATELET COUNT 203 10^3/uL (150-450); RED BLOOD COUNT 4.53 10^6/uL (4.35-5.55); RED CELL DISTRIBUTION WIDTH 13.2 % (11.5-14.0); WHITE BLOOD COUNT 13.5 10^3/uL (4.0-10.5)
[2018-05-16 06:43] LABS: ANION GAP 8 (5-19); BLOOD UREA NITROGEN 13 mg/dL (7-20); CALCIUM 8.9 mg/dL (8.4-10.2); CARBON DIOXIDE 28 mmol/L (22-30); CHLORIDE 103 mmol/L (98-107); GLUCOSE 130 mg/dL (75-110); POTASSIUM 3.9 mmol/L (3.6-5.0); SODIUM 138.8 mmol/L (137-145)
[2018-05-16] MEDS ORDERED: METOPROLOL SUCCINATE 25 MG TAB.SR.24H PO SCH (10:00)
[2018-05-16] MEDS: DILTIAZEM HCL/D5W 125 MG/125 ML RTUINJ IV PRN (11:21)
[2018-05-16] MEDS: GUAIFENESIN 600 MG TABLET.SA PO SCH ×2 (11:22→21:55)
[2018-05-16] MEDS: APIXABAN 5 MG TABLET PO SCH ×2 (11:22→18:13)
[2018-05-16] MEDS: DOCUSATE SODIUM 100 MG CAPSULE PO SCH ×2 (11:24→18:14)
[2018-05-16] MEDS ORDERED: METOPROLOL SUCCINATE 50 MG TAB.SR.24H PO SCH (12:00)
[2018-05-16 13:01] LABS: APPEARANCE,URINE CLEAR; BILIRUBIN,URINE NEGATIVE (NEGATIVE); COLOR,URINE YELLOW; GLUCOSE, URINE NEGATIVE (NEGATIVE); KETONES,URINE NEGATIVE (NEGATIVE); LEUKOCYTE ESTERASE,URINE NEGATIVE (NEGATIVE); NITRITE,URINE NEGATIVE (NEGATIVE); PROTEIN,URINE NEGATIVE (NEGATIVE); URINE SPECIFIC GRAVITY 1.016
[2018-05-16] MEDS ORDERED: DIGOXIN INJ 0.5 MG/2 ML AMPULE IV ONE ×2 (14:30→18:15)
[2018-05-16] MEDS ORDERED: DIAZEPAM 5 MG TABLET PO PRN (20:48)
[2018-05-16] MEDS: ATORVASTATIN CALCIUM 80 MG TABLET PO SCH (21:54)
[2018-05-16] MEDS: METOPROLOL SUCCINATE 50 MG TAB.SR.24H PO SCH (21:55)
--- NOTE | 2018-05-16 22:13 | PDOC PROGRESS REPORT ---
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 The patient was seen this morning in rounds. He is resting comfortably in the bedside recliner. He denies chest pain, orthopnea, shortness of breath, abdominal pain, nausea and vomiting. He has no new questions or concerns at this time. The patient remains on a Cardizem drip for rate control. Per cardiology recommendations, increased p.o. metoprolol from 25mg -->100mg BID and wean Cardizem gtt. Ultimately, the plan is to discharge the patient home. Likely within 24-48 h ours. No concerns per nursing. Reason For Visit: AFIB MORBID OBESITY HTN Physical Exam Vital Signs: Temp Pulse Resp BP Pulse Ox 97.8 F 97 16 129/84 H 92 05/16/18 11:32 05/16/18 14:00 05/16/18 11:32 05/16/18 14:00 05/16/18 11:32 Intake & Output 05/15/18 05/16/18 05/17/18 06:59 06:59 06:59 Intake Total 2846 1090 32 Output Total 1795 1175 Balance 1051 -85 32 Weight 142.1 kg 142.1 kg General appearance: PRESENT: no acute distress, morbidly obese Eye exam: PRESENT: conjunctiva pink Mouth exam: PRESENT: moist Respiratory exam: PRESENT: clear to auscultation rinku Cardiovascular exam: PRESENT: irregular rhythm - AFIB Pulses: PRESENT: normal radial pulses, normal dorsalis pedis pul GI/Abdominal exam: PRESENT: diminished bowel sounds, soft. ABSENT: tenderness Extremities exam: PRESENT: full ROM. ABSENT: pedal edema Musculoskeletal exam: PRESENT: ambulatory, full ROM Neurological exam: PRESENT: alert, altered, awake Skin exam: PRESENT: dry, intact, normal color Results Laboratory Results: 05/16/18 05:08 05/16/18 05:08 05/16/18 05/16/18 05/16/18 05:08 05:08 11:25 WBC 13.5 H RBC 4.53 Hgb 13.5 Hct 39.5 MCV 87 MCH 29.8 MCHC 34.3 RDW 13.2 Plt Count 203 Sodium 138.8 Potassium 3.9 Chloride 103 Carbon Dioxide 28 Anion Gap 8 BUN 13 Creatinine 0.81 Est GFR ( Amer) > 60 Est GFR (Non-Af Amer) > 60 Glucose 130 H Calcium 8.9 Urine Color YELLOW Urine Appearance CLEAR Urine pH 6.0 Ur Specific [place] 1.016 Urine Protein NEGATIVE Urine Glucose (UA) NEGATIVE Urine Ketones NEGATIVE Urine Blood NEGATIVE Urine Nitrite NEGATIVE Ur Leukocyte Esterase NEGATIVE Urine WBC (Auto) 1 Urine RBC (Auto) 1 05/13/18 05/13/18 05/14/18 19:05 22:30 05:50 Creatine Kinase CK-MB (CK-2) 0.95 Troponin I 0.016 0.015 0.016 NT-Pro-B Natriuret Pep 1960 H 05/14/18 05/14/18 05/16/18 05:50 12:05 05:08 Creatine Kinase 73 CK-MB (CK-2) Troponin I 0.012 NT-Pro-B Natriuret Pep 1060 H Impressions: Chest X-Ray 05/13/18 19:36 IMPRESSION: No acute cardiopulmonary disease. copyright 2011 [employer]- All Rights Reserved Status: Imported from PACS Assessment & Plan - Diagnosis (1) Atrial fibrillation with rapid ventricular response Is this a current diagnosis for this admission?: Yes Plan: Initial EKG demonstrated A.fib with RVR (heart rate 147) without ST segment changes. Chest x-ray is negative for acute cardiopulmonary disease. TSH is benign. Echocardiogram pending. Initial ECHO unable to be interpreted (per bakery helper) The patient is admitted to [facility] on continuous cardiac telemetry. He has been placed on a diltiazem drip; maxed out at 15 mg/h now weaning off Increased Metoprolol XL to 100 mg twice daily. Has been transitioned to Eliquis per cardiology. Cardiology has been consulted; appreciate Dr. Burrows's assistance. (2) Elevated brain natriuretic peptide (BNP) level Is this a current diagnosis for this admission?: Yes Plan: proBNP is improved from 1966-->1060 Troponins negative x4 Chest x-ray is benign. Echocardiogram is pending. Cardiology is consulted. Medication management as above. (3) Leukocytosis Is this a current diagnosis for this admission?: Yes Plan: Stress reaction vs viral prodrome vs resolving leukocytosis following outpatient treatment for pneumonia. Patient is afebrile and denies focal or systemic symptoms consistent with infection. No indications for antibiotic therapy at this time. We will continue to monitor. (4) Morbid obesity with BMI of 45.0-49.9, adult Is this a current diagnosis for this admission?: Yes Plan: Dietary discretion is advised. Is placed on a cardiac diet. We will ask the registered dietitian to meet with the patient. (5) Obstructive sleep apnea Is this a current diagnosis for this admission?: Yes Plan: CPAP nightly. Supplemental oxygen as needed to maintain saturations >90%. (6) Dyspnea Qualifiers: Dyspnea type: dyspnea on exertion Qualified Code(s): R06.09 - Other forms of dyspnea Is this a current diagnosis for this admission?: Yes Plan: Secondary to afib w/ RVR and URI; possibly bronchitis. Pt was treated as an outpatient for pneumonia 1 month ago. LCTA. Continue supplemental oxygen as needed, currently on room air during AM and CPAP at night As needed nebulizer treatments. Tessalon Perles. Mucinex twice daily. - Time Time Spent with patient: 15-24 minutes Medications reviewed and adjusted accordingly: Yes Anticipated discharge: Home Within: within 48 hours - Inpatient Certification Based on my medical assessment, after consideration of the patient's comorbidities, presenting symptoms, or acuity I expect that the services needed warrant INPATIENT care.: Yes I certify that my determination is in accordance with my understanding of Medicare's requirements for reasonable and necessary INPATIENT services [42 CFR 412.3e].: Yes Medical Necessity: Risk of Complication if Not Cared For in Hospital - Plan Summary Plan Summary: WEAN CARDIZEM GTT. INCREASE METOPROLOL. LIKELY D/C HOME IN 24-48HRS
--- NOTE | 2018-05-16 23:30 | Progress Note ---
Provider Note Provider Note: CARDIOLOGY PROGRESS NOTE by Dr. Nevin Rice on 05/16/2018. SUBJECTIVE: The patient continues to be in atrial fibrillation. His heart rate is slightly better but still is in the 110s. He denies any chest pain discomfort. There is no PND orthopnea. The patient does appear to be slightly anxious. He states he did not sleep well last night. He in spite of discomfort using the BiPAP he managed to keep it on. There is no bleeding on Eliquis. There is no TIA CVA symptoms. PHYSICAL EXAMINATION: The patient is morbidly obese. In no acute distress. He is slightly anxious. He is well-groomed. Selected Entries 05/16/18 11:32 Temperature 97.8 F Temperature Oral Source Pulse Rate 97 Respiratory 16 Rate Blood Pressure 140/74 H Blood Pressure 96 Mean BP Location Left Arm BP Position Supine O2 Sat by Pulse 92 Oximetry Oxygen Delivery Room Air Method 05/14/18 05/15/18 05/16/18 12:05 05:49 05:08 WBC 13.5 H RBC 4.53 Hgb 13.5 Hct 39.5 MCV 87 MCH 29.8 MCHC 34.3 RDW 13.2 Plt Count 203 Sodium Potassium Chloride Carbon Dioxide Anion Gap BUN Creatinine Est GFR (Non-Af Amer) Glucose Hemoglobin A1c % 5.7 Calcium Troponin I 0.012 HEAD: Is atraumatic normocephalic. EYES: Pupils are equal round regular reactive to light accommodation. Extraocular movements are normal. There is no palatal pallor. There is no scleral icterus. EYES: Pupils equal round regular reactive to light accommodation. Extraocular movements are normal. There is no conjunctival pallor. There is no scleral icterus. EARS: Tympanic membranes are intact. External auditory canals are clear. NOSE: There is no deviated nasal septum. There is no inflammation of the nasal mucous membrane. There is no nasal polyps on exam. MOUTH: There is no ulcers in the mouth or any bleeding from the mouth or gums. Mucous membranes of the mouth are moist tongue is moist. THROAT: There is no redness of the oropharynx. There is no exudates. His oropharynx is Mallampati class 3 SKIN: There is no skin rashes or petechiae. There is no skin lesions or ecchymosis. NECK: Is supple. There is no JVD. Carotids are equal. There is no bruits. There is no lymphadenopathy. There is no goiter. There is no accessory muscles of respiration use. Trachea central. LUNGS: Clear to auscultation without any rhonchi rales or wheezing. In view of the patient's obesity there is diminished air entry bilaterally. But the expiration is not prolonged. There is no chest wall tenderness. HEART: S1-S2 is heard S1 is of variable intensity. There is no S3 gallop. There is no S4 gallop. There is systolic murmur left sternal border and the apex there is no rub. ABDOMEN: Is obese. Nontender. There is no hepatosplenomegaly. Bowel sounds are well heard. EXTREMITIES: Femorals are deep femorals are diminished there is no femoral bruits. Leg pulses are well felt. There is no pedal edema. There is no DVT or cellulitis. There is no calf tenderness. There is no cyanosis or clubbing. Capillary refill is normal SECONDARY TEACHER: The patient is conscious awake alert oriented x3 with no focal deficit. PSYCHIATRIC: The patient judgment insight are intact his affect is normal. 05/16/18 05:08 WBC RBC Hgb Hct MCV MCH MCHC RDW Plt Count Sodium 138.8 Potassium 3.9 Chloride 103 Carbon Dioxide 28 Anion Gap 8 BUN 13 Creatinine 0.81 Est GFR (Non-Af Amer) > 60 Glucose 130 H Hemoglobin A1c % Calcium 8.9 Troponin I IMPRESSION/RECOMMENDATION: 1. New onset atrial fibrillation with rapid ventricular response. Continue metoprolol at an increased dosage. Continue Eliquis. We will recheck the patient's digoxin level the a.m., since the patient did receive digoxin IV. 2. Hypertension: As per patient well-controlled, as mentioned earlier we will stop the patient's amlodipine, and restart only if is necessary. Later would start the patient on either sotalol or metoprolol. 3. History of hyperlipidemia. Lipid level showed dyslipidemia with a low HDL level, and acceptable triglycerides and HDL levels. Would recommend continue the patient on statin. 4. Symptoms, and physical exam suggestive of sleep apnea: Patient recommended to have a sleep study as an outpatient. We will try the patient empirically on BiPAP at night. 5. Morbid obesity: Later as an outpatient would recommend that the patient have weight reduction counseling, including diet and possibly consultation with the weight loss facility. MEDICATIONS reviewed. Medication adjusted. Medical decision making is of high complexity. Discussed with the other caregiving providers on the case, including the attending physician, management plan/strategy on this patient. 40 minutes spent on this patient more than 50% time spent in direct patient care.
[2018-05-17 06:13] LABS: HEMATOCRIT 39.1 % (37.9-51.0); HEMOGLOBIN 13.5 g/dL (13.5-17.0); MEAN CORPUSCULAR HEMOGLOBIN 30.1 pg (27.0-33.4); MEAN CORPUSCULAR HGB CONC 34.5 g/dL (32.0-36.0); MEAN CORPUSCULAR VOLUME 87 fl (80-97); PLATELET COUNT 215 10^3/uL (150-450); RED BLOOD COUNT 4.49 10^6/uL (4.35-5.55); RED CELL DISTRIBUTION WIDTH 13.1 % (11.5-14.0); WHITE BLOOD COUNT 11.5 10^3/uL (4.0-10.5)
[2018-05-17 06:32] LABS: ALANINE AMINOTRANSFERASE 39 U/L (21-72); ALBUMIN 3.6 g/dL (3.5-5.0); ALKALINE PHOSPHATASE 60 U/L (38-126); ANION GAP 9 (5-19); ASPARTATE AMINO TRANSFERASE 24 U/L (17-59); BILIRUBIN,DIRECT 0.3 mg/dL (0.0-0.4); BILIRUBIN,TOTAL 0.9 mg/dL (0.2-1.3); BLOOD UREA NITROGEN 15 mg/dL (7-20); CALCIUM 8.9 mg/dL (8.4-10.2); CARBON DIOXIDE 29 mmol/L (22-30); CHLORIDE 102 mmol/L (98-107); DIGOXIN 0.67 ng/mL (0.8-2.0); GLUCOSE 122 mg/dL (75-110); POTASSIUM 4.2 mmol/L (3.6-5.0); SODIUM 139.5 mmol/L (137-145); TOTAL PROTEIN 6.2 g/dL (6.3-8.2)
[2018-05-17] MEDS ORDERED: DIGOXIN INJ 0.5 MG/2 ML AMPULE IV ONE ×2 (09:00→11:00)
[2018-05-17] MEDS: METOPROLOL SUCCINATE 50 MG TAB.SR.24H PO SCH (09:24)
[2018-05-17] MEDS: DOCUSATE SODIUM 100 MG CAPSULE PO SCH ×2 (09:24→17:41)
[2018-05-17] MEDS: APIXABAN 5 MG TABLET PO SCH ×2 (09:24→17:41)
[2018-05-17] MEDS: GUAIFENESIN 600 MG TABLET.SA PO SCH (09:24)
[2018-05-17] MEDS ORDERED: DIGOXIN 0.125 MG TABLET PO ONE (10:05)
[2018-05-17] MEDS ORDERED: CLONAZEPAM 1 MG TABLET PO PRN (10:10)
[2018-05-17] MEDS ORDERED: DILTIAZEM HCL/D5W 125 MG/125 ML RTUINJ IV PRN (13:39)
[2018-05-17] MEDS ORDERED: DIGOXIN 0.25 MG TABLET PO SCH (14:00)
--- NOTE | 2018-05-17 15:53 | PDOC TRANSFER SUMMARY ---
General Admission Date/PCP: 05/13/18 22:22 Admission Date: 05/13/18 Transfer Date: 05/17/18 Accepting Facility: [facility] Accepting Physician: Dr. Florentin Quintero Resuscitation Status: Full Code - Transfer Diagnosis (1) Atrial fibrillation with rapid ventricular response Is this a current diagnosis for this admission?: Yes (2) Elevated brain natriuretic peptide (BNP) level Is this a current diagnosis for this admission?: Yes (3) Leukocytosis Is this a current diagnosis for this admission?: Yes (4) Morbid obesity with BMI of 45.0-49.9, adult Is this a current diagnosis for this admission?: Yes (5) Obstructive sleep apnea Is this a current diagnosis for this admission?: Yes (6) Dyspnea Is this a current diagnosis for this admission?: Yes - Transfer Medications Home Medications: Amlodipine Besylate/Benazepril [Lotrel 10-20 Mg Capsule] 1 each PO DAILY 11/12/11 Aspirin [Aspirin 81 mg Chewable Tablet] 81 mg PO DAILY 11/12/11 Rosuvastatin Calcium [Crestor 20 mg Tablet] 20 mg PO DAILY 11/12/11 Multivitamin [Multiple Vitamins] 1 each PO DAILY 05/14/18 Transfer Medications: Current Medications Al Hydrox/Mg Hydrox/Simethicone (Maalox Plus Susp 30 Udcup) 30 ml PO Q4HP PRN PRN Reason: HEARTBURN Stop: 06/12/18 22:12 Apixaban (Eliquis 5 Mg Tablet) 5 mg PO BID [facility] Stop: 06/14/18 09:59 Last Admin: 05/17/18 09:24 Dose: 5 mg Documented by: Atorvastatin Calcium (Lipitor 80 Mg Tablet) 80 mg PO QHS [place] Stop: 06/13/18 21:59 Last Admin: 05/16/18 21:54 Dose: 80 mg Documented by: Benzonatate (Tessalon Perles 100 Mg Capsule) 100 mg PO Q8HP PRN PRN Reason: COUGH Stop: 06/14/18 13:51 Last Admin: 05/15/18 15:09 Dose: 100 mg Documented by: Clonazepam (Klonopin 1 Mg Tablet) 0.5 mg PO Q8HP PRN PRN Reason: ANXIETY Stop: 05/24/18 10:09 Digoxin (Lanoxin 0.25 Mg Tablet) 0.25 mg PO DAILY [place] Stop: 06/16/18 13:59 Last Admin: 05/17/18 14:29 Dose: 0.25 mg Documented by: Docusate Sodium (Colace 100 Mg Capsule) 100 mg PO BID [facility] Stop: 06/13/18 09:59 Last Admin: 05/17/18 09:24 Dose: Not Given Documented by: Guaifenesin (Mucinex Sr 600 Mg Tablet.Sa) 600 mg PO Q12 [facility] Stop: 06/14/18 21:59 Last Admin: 05/17/18 09:24 Dose: 600 mg Documented by: Diltiazem HCl (Cardizem Rtu Inj 125 Mg-D5w 125 Ml Premix) 125 mg in 125 mls @ 0 mls/hr IV CONTINUOUS PRN; Protocol PRN Reason: THIS MED IS NOT "PRN" Stop: 06/16/18 13:38 Levalbuterol HCl (Xopenex Neb 1.25 Mg/3 Ml Ampul) 1.25 mg NEB [id number] PRN PRN Reason: SHORTNESS OF BREATH Stop: 06/14/18 13:51 Metoprolol Succinate (Toprol Xl 50 Mg Tab.Sr) 100 mg PO Q12 [facility] Stop: 06/15/18 21:59 Last Admin: 05/17/18 09:24 Dose: 100 mg Documented by: Sodium Chloride (Saline Flush 2.5 Ml Monoject Prefil Syrin) 2.5 ml IV Q8 [facility] Stop: 06/13/18 05:59 Last Admin: 05/17/18 14:30 Dose: Not Given Documented by: - Allergies Allergies/Adverse Reactions: No Known Allergies Allergy (Unverified 11/12/11 13:14) Hospital Course Hospital Course: 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 EKG done 24 hours prior to admission revealing A. fib with RVR. Vagal maneuvers were attempted but did not relieve. Upon admission, EKG reveals atrial fibrillation with rapid ventricular rate. Laboratory studies were relatively benign, including negative cardiac enzymes. BNP slightly elevated to 1060. The patient was placed on a Cardizem drip and admitted to the intermediate care unit (IMCU). He was started on anticoagulation with oral Eliquis (prior to hospitalization was only taking p.o. aspirin). Poor heart rate control even with maximum IV Cardizem gtt dosing. Mu ltiple administrations of IV digoxin still could not control the heart rate. P.o. metoprolol was added to the medication regimen, offered minimal rate improvement. Echocardiogram was unable to be completed due to patient's body habitus. [facility] refrigeration mechanic, Dr. Burrows, recommending transfer to tertiary facility for MEIR and cardioversion. [facility] has graciously accepted the patient. Physical Exam Vital Signs: Temp Pulse Resp BP Pulse Ox 97.3 F 105 H 16 129/80 H 91 L 05/17/18 12:55 05/17/18 14:30 05/17/18 12:55 05/17/18 14:30 05/17/18 12:55 Intake & Output 05/16/18 05/17/18 05/18/18 06:59 06:59 06:59 Intake Total 1090 950 Output Total 1175 1600 Balance -85 -650 Weight 142.1 kg General appearance: PRESENT: morbidly obese Eye exam: PRESENT: conjunctiva pink, PERRLA Mouth exam: PRESENT: moist, neck supple Neck exam: PRESENT: full ROM. ABSENT: JVD Respiratory exam: PRESENT: clear to auscultation rinku, symmetrical, tachypnea - Patient become short of breath with minimal activity Cardiovascular exam: PRESENT: irregular rhythm - Atrial fibrillation with rapid ventricular rate Pulses: PRESENT: normal radial pulses, normal dorsalis pedis pul Vascular exam: PRESENT: normal capillary refill GI/Abdominal exam: PRESENT: soft. ABSENT: distended, tenderness Rectal exam: PRESENT: deferred Extremities exam: PRESENT: full ROM, pedal edema - +1, +1 edema Musculoskeletal exam: PRESENT: ambulatory, full ROM Neurological exam: PRESENT: alert, awake, oriented to person, oriented to place, oriented to time, oriented to situation Psychiatric exam: PRESENT: appropriate affect Skin exam: PRESENT: dry, normal color, warm Results Laboratory Results: 05/17/18 05:26 05/17/18 05:26 05/17/18 05/17/18 05:26 05:26 WBC 11.5 H RBC 4.49 Hgb 13.5 Hct 39.1 MCV 87 MCH 30.1 MCHC 34.5 RDW 13.1 Plt Count 215 Sodium 139.5 Potassium 4.2 Chloride 102 Carbon Dioxide 29 Anion Gap 9 BUN 15 Creatinine 0.88 Est GFR ( Amer) > 60 Est GFR (Non-Af Amer) > 60 Glucose 122 H Calcium 8.9 Total Bilirubin 0.9 AST 24 ALT 39 Alkaline Phosphatase 60 Total Protein 6.2 L Albumin 3.6 05/13/18 05/13/18 05/14/18 19:05 22:30 05:50 Creatine Kinase CK-MB (CK-2) 0.95 Troponin I 0.016 0.015 0.016 NT-Pro-B Natriuret Pep 1960 H 05/14/18 05/14/18 05/16/18 05:50 12:05 05:08 Creatine Kinase 73 CK-MB (CK-2) Troponin I 0.012 NT-Pro-B Natriuret Pep 1060 H Impressions: Chest X-Ray 05/13/18 19:36 IMPRESSION: No acute cardiopulmonary disease. copyright 2010 [employer]- All Rights Reserved Status: Imported from PACS Plan Discharge Plan: Transfer to an [facility]. Accepting physician, Dr. Florentin Quintero Time Spent: Greater than 30 Minutes
[2018-05-17 18:39] VITALS: BP 136/87
--- NOTE | 2018-05-17 18:59 | Progress Note ---
Provider Note Provider Note: CARDIOLOGY PROGRESS NOTE by Dr. Nevin Rice on 05/17/2018. SUBJECTIVE: The patient continues to have atrial fibrillation with a ventricular response in the 100-120 bpm. His digoxin level is subtherapeutic. Hence the patient was given digoxin 0.25 mg IV push x1 followed by 0.125 mg IV push x1. He is also on an increased dose of metoprolol twice a day. In spite of this patient's heart rate keeps going up and if the patient ambulates within the room it goes higher into the 130s 140s. Hence the patient has been started on a Cardizem drip. The patient denies any chest pain or discomfort. There is no PND orthopnea. There is no leg edema. The patient has no bleeding complications on Eliquis. There is no TIA CVA symptoms. The patient and the family are requesting transfer to tertiary care center. This may not be a bad idea, since the patient's heart rate is very difficult to control, the patient may benefit from a MEIR guided cardioversion, if the ferryboat operator helper in the tertiary care facility feels that that would be the strategy to go with. PHYSICAL EXAMINATION: The patient is morbidly obese. He is mildly anxious. And also seems to be frustrated. He is well-groomed. Selected Entries 05/17/18 05/17/18 12:55 14:00 Temperature 97.3 F Temperature Oral Source Pulse Rate 106 H 120 H Respiratory 16 Rate Blood Pressure 142/98 H Blood Pressure 112 Mean BP Location Left Arm BP Position Sitting O2 Sat by Pulse 91 L Oximetry Oxygen Delivery Room Air Method HEAD: Is atraumatic normocephalic. EYES: Pupils are equal round regular reactive to light accommodation. Extraocular movements are normal. There is no palatal pallor. There is no scleral icterus. EYES: Pupils equal round regular reactive to light accommodation. Extraocular movements are normal. There is no conjunctival pallor. There is no scleral icterus. EARS: Tympanic membranes are intact. External auditory canals are clear. NOSE: There is no deviated nasal septum. There is no inflammation of the nasal mucous membrane. There is no nasal polyps on exam. MOUTH: There is no ulcers in the mouth or any bleeding from the mouth or gums. Mucous membranes of the mouth are moist tongue is moist. THROAT: There is no redness of the oropharynx. There is no exudates. His oropharynx is Mallampati class 3 SKIN: There is no skin rashes or petechiae. There is no skin lesions or ecchymosis. NECK: Is supple. There is no JVD. Carotids are equal. There is no bruits. There is no lymphadenopathy. There is no goiter. There is no accessory muscles of respiration use. Trachea central. LUNGS: Clear to auscultation without any rhonchi rales or wheezing. In view of the patient's obesity there is diminished air entry bilaterally. But the expiration is not prolonged. There is no chest wall tenderness. HEART: S1-S2 is heard S1 is of variable intensity. There is no S3 gallop. There is no S4 gallop. There is systolic murmur left sternal border and the apex there is no rub. ABDOMEN: Is obese. Nontender. There is no hepatosplenomegaly. Bowel sounds are well heard. EXTREMITIES: Femorals are deep femorals are diminished there is no femoral bruits. Leg pulses are well felt. There is no pedal edema. There is no DVT or cellulitis. There is no calf tenderness. There is no cyanosis or clubbing. 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 PSYCHIATRIC: The patient judgment insight are intact his affect is normal. 05/15/18 05/16/18 05/17/18 14:03 05:08 05:26 WBC RBC Hgb Hct MCV MCH MCHC RDW Plt Count Sodium 139.5 Potassium 4.2 Chloride 102 Carbon Dioxide 29 Anion Gap 9 BUN 15 Creatinine 0.88 Est GFR (Non-Af Amer) > 60 Glucose 122 H Calcium 8.9 Total Bilirubin 0.9 Direct Bilirubin 0.3 Neonat Total Bilirubin Not Reportable Neonat Direct Bilirubin Not Reportable Neonat Indirect Bili Not Reportable AST 24 ALT 39 Alkaline Phosphatase 60 NT-Pro-B Natriuret Pep 1060 H Total Protein 6.2 L Albumin 3.6 Stool Occult Blood NEGATIVE Digoxin 0.67 L 05/17/18 05:26 WBC 11.5 H RBC 4.49 Hgb 13.5 Hct 39.1 MCV 87 MCH 30.1 MCHC 34.5 RDW 13.1 Plt Count 215 Sodium Potassium Chloride Carbon Dioxide Anion Gap BUN Creatinine Est GFR (Non-Af Amer) Glucose Calcium Total Bilirubin Direct Bilirubin Neonat Total Bilirubin Neonat Direct Bilirubin Neonat Indirect Bili AST ALT Alkaline Phosphatase NT-Pro-B Natriuret Pep Total Protein Albumin Stool Occult Blood Digoxin Patient's 24-hour intake has been 950 mL. Output for the 24 hours is 1600 mL. IMPRESSION/RECOMMENDATION: 1. New onset atrial fibrillation with rapid ventricular response. In spite of the patient being on digoxin and metoprolol on good doses, the patient continues to have atrial fibrillation with fast ventricular response. The patient has b een started on 5 mg/h of Cardizem drip. Which is slowed the heart rate down to in the 90s 200s. As per the patient and the family's request initially arrangements were made for the patient to be transferred to [facility] in [facility]. The patient refused that and wanted to go to [facility] in [place]. I have spoken to Dr. Angela Paulson who did accept the patient on before behalf of Dr. Faria. But there were no beds and as per the transfer center it may take 48-72 hours to get a bed for the patient. In view of this the patient finally agreed to being transferred to [facility]. For further management of his atrial fibrillation. 2. Hypertension: At present the patient blood pressure well controlled.. 3. History of hyperlipidemia. Lipid level showed dyslipidemia with a low HDL level, and acceptable triglycerides and HDL levels. Would recommend continue the patient on statin. 4. Symptoms, and physical exam suggestive of sleep apnea: Patient recommended to have a sleep study as an outpatient. We will try the patient empirically on BiPAP at night. 5. Morbid obesity: Later as an outpatient would recommend that the patient have weight reduction counseling, including diet and possibly consultation with the weight loss facility. Note transfer him is made for the patient to be transferred to [facility]. 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 Medical decision making is of high complexity. 40 T5 minutes spent on the patient with more than 50% of time spent in direct patient care. Discussed with the attending physician on the case. Will sign off.
== END 2018-05-17 19:30 | disposition short-term general hospital (02) | DRG 309 ==
LOC: ER 19:06 → EH 22:22 → 3S 05-14 00:16
PROVIDERS: ADMIT Internal Medicine; ATTEND Internal Medicine
PROC: 5A09457 Assistance with Respiratory Ventilation, 24-96 Consecutive Hours, Continuous Positive Airway Pressure (ICD-10-PCS; principal; 2018-05-13)
PROC: 3E0F73Z Introduction of Anti-inflammatory into Respiratory Tract, Via Natural or Artificial Opening (ICD-10-PCS; 2018-05-16)
DX: I48.91 Unspecified atrial fibrillation (principal); Z68.42 Body mass index [BMI] 45.0-49.9, adult; E66.01 Morbid (severe) obesity due to excess calories; I10 Essential (primary) hypertension; G47.33 Obstructive sleep apnea (adult) (pediatric); E78.00 Pure hypercholesterolemia, unspecified; Z99.81 Dependence on supplemental oxygen; Z79.899 Other long term (current) drug therapy; Z79.82 Long term (current) use of aspirin; Z82.3 Family history of stroke; Z82.49 Family history of ischemic heart disease and other diseases of the circulatory system
CPT/HCPCS: 36415; 71045; 80048; 80053; 80061; 80162; 81001; 82272; 82550; 82553; 83036; 83880; 84443; 84484; 85025; 85027; 85610; 93005; 93010; 93306; 94660; 94667; 94799; 96361; 96374; 99291; J1160; J3490; J7030; J7120